=== PATIENT | female | born 1995 | race Asian ===

== ENCOUNTER 2021-07-25 11:06 | Emergency (ER) | payer BC ==
[~2021-07-25] VITALS: Ht 152.4 cm; Wt 47.6 kg
[2021-07-25 11:18] VITALS: BP 133/74
--- NOTE | 2021-07-25 11:18 | NUR ---
Dr. Mar is evaluating pt in triage room
--- NOTE | 2021-07-25 12:45 | NUR ---
Patient ambulated to bed 3.
--- NOTE | 2021-07-25 13:27 | NUR ---
NO NURSING CARE GIVEN-Patient discharged with v/s stable. Written and verbal after care instructions given and explained. Patient alert, oriented and verbalized understanding of instructions. Ambulatory with steady gait. All questions addressed prior to discharge. ID band removed. Patient advised to follow up with PMD.NO Rx given. Patient educated on indication of medication including possible reaction and side effects. Opportunity to ask questions provided and answered.
== END 2021-07-25 13:27 | disposition home or self-care (01) ==
LOC: MED 11:06
DX: U07.1 COVID-19 (principal)
CPT/HCPCS: 71045; 87426; 99284; U0003